=== PATIENT | female | born 1975 | race Two or more races ===

== ENCOUNTER 2020-11-29 22:59 | Emergency (ER) | payer OTHER ==
[~2020-11-29] VITALS: Ht 157.5 cm; Wt 68.2 kg
[2020-11-29 23:03] VITALS: BP 139/78
[2020-11-29] MEDS ORDERED: LIDOCAINE-MPF 1%, 5ML ONE (23:21)
[2020-11-29] MEDS ORDERED: DIPH,PERTUSS(ACELL),TET VAC/PF 0.5 ML IM-VACC ONE ×2 (23:22→23:30)
[2020-11-29] MEDS ORDERED: LIDOCAINE-MPF 1%, 5ML INFIL ONE (23:30)
[2020-11-30] MEDS ORDERED: BACITRACIN ZINC OINT 500U/GM, 0.9 GM ONE (00:25)
--- NOTE | 2020-11-30 00:39 | NUR ---
Patient given discharge instructions and they have confirmed that they understand the instructions. Patient ambulatory with steady gait. NAD, all questions answered appropriately, denies additional needs at this time. No personal belongings left in room after discharge. PATIENT GIVEN EXTRA SUPPLIES TO ENCOURAGE PROPER WOUND CARE.
== END 2020-11-30 00:42 | disposition home or self-care (01) ==
LOC: ED 23:46
DX: S61.210A Laceration without foreign body of right index finger without damage to nail, initial encounter (principal); X58.XXXA Exposure to other specified factors, initial encounter; Y93.89 Activity, other specified; Y92.009 Unspecified place in unspecified non-institutional (private) residence as the place of occurrence of the external cause; Y99.8 Other external cause status
CPT/HCPCS: 12002; 90471; 90715